=== PATIENT | female | born 1995 | race Caucasian/White ===

== ENCOUNTER 2017-03-10 07:55 | Outpatient (CLI) | payer MEDICAID ==
[2017-03-10 11:51] LABS: BASOPHILS % (AUTO) 0.4 %; EOSINOPHILS # (AUTO) 0.1 10^3/uL (0.0-0.7); EOSINOPHILS % (AUTO) 0.5 %; HCT - HEMATOCRIT 38.3 % (37.0-47.0); HGB - HEMOGLOBIN 12.7 g/dL (12.0-16.0); LYMPHOCYTES # (AUTO) 2.4 10^3/uL (1.5-3.5); LYMPHOCYTES % (AUTO) 20.1 %; MEAN CORPUSCULAR HEMOGLOBIN 29.1 pg (27.0-31.0); MEAN CORPUSCULAR HGB CONC 33.2 g/dL (32.0-36.0); MEAN CORPUSCULAR VOLUME 87.7 fL (81.0-99.0); MEAN PLATELET VOLUME 8.9 fL (7.9-10.8); MONOCYTES # (AUTO) 0.7 10^3/uL (0.0-1.0); MONOCYTES % (AUTO) 6.1 %; NEUTROPHILS # (AUTO) 8.5 10^3/uL (1.5-6.6); NEUTROPHILS % (AUTO) 72.9 %; RED BLOOD COUNT 4.36 10^6/uL (4.20-5.40); RED CELL DISTRIBUTION WIDTH 14.9 % (12.0-15.0); UNCORRECTED WHITE BLOOD COUNT 11.7 x10^3/uL; WHITE BLOOD COUNT 11.7 x10^3/uL (4.8-10.8)
[2017-03-10 13:12] LABS: HEMOGLOBIN A1C 0.48 g/dL
== END 2017-03-10 07:56 | disposition home or self-care (01) ==
LOC: LAB.F 07:55
PROVIDERS: ATTEND Nurse Practitioner Family
DX: R00.2 Palpitations (principal)
CPT/HCPCS: 36415; 83036; 84443; 85025

== ENCOUNTER 2017-04-06 09:39 | Outpatient (CLI) | payer MEDICAID ==
[2017-04-06 18:15] LABS: CALCIUM 9.6 mg/dL (8.5-10.3); CREATININE 0.6 mg/dL (0.4-1.0); POTASSIUM 4.2 mmol/L (3.5-5.0)
[2017-04-06 18:25] LABS: THYROID STIMULATING HORMONE 4.14 uIU/mL (0.34-5.60)
== END 2017-04-06 09:40 | disposition home or self-care (01) ==
LOC: LAB.F 09:39
PROVIDERS: ATTEND Nurse Practitioner Family
DX: R00.2 Palpitations (principal); Z00.01 Encounter for general adult medical examination with abnormal findings; F41.8 Other specified anxiety disorders
CPT/HCPCS: 36415; 80048; 84439; 84443

== ENCOUNTER 2018-07-24 12:49 | Outpatient (CLI) | payer OTHER, MEDICAID | END 2018-07-24 12:50 | disposition critical access hospital (66) | LOC: EMS 12:49 | PROVIDERS: ATTEND Surgery | DX: R10.2 Pelvic and perineal pain (principal) | CPT/HCPCS: A0425; A0429 ==

== ENCOUNTER 2018-07-24 13:35 | Emergency (ER) | payer OTHER, MEDICAID ==
[2018-07-24] MEDS ORDERED: IBUPROFEN 800 MG TABLET PO STA (14:18)
[2018-07-24 14:38] LABS: BILIRUBIN,URINE NEGATIVE (NEGATIVE); GLUCOSE, URINE (UA) NEGATIVE (NEGATIVE); KETONES,URINE (UA) NEGATIVE (NEGATIVE); LEUKOCYTE ESTERASE, URINE NEGATIVE (NEGATIVE); NITRITE,URINE NEGATIVE (NEGATIVE); OCCULT BLOOD,URINE TRACE-LYSE (NEGATIVE); PROTEIN,URINE NEGATIVE (NEGATIVE); UROBILINOGEN,URINE 0.2 (NORMAL) E.U./dL (NORMAL)
[2018-07-24 14:40] LABS: CLARITY,URINE CLEAR (CLEAR); HCG UR QUAL NEGATIVE
--- NOTE | 2018-07-24 15:20 | ED Physician Documentation ---
PD HPI FEMALE - Stated complaint Stated Complaint: FEVER - Chief complaint Chief Complaint: Abd Pain - History obtained from History obtained from: Patient - History of Present Illness Timing - onset: How many days ago (2) Timing - details: Still present Associated symptoms: Pelvic pain Contributing factors: Sexually active Similar symptoms before: No diagnosis (Similar experience about two years ago.) - Additional information Additional information: The patient is a 22-year-old female who presents with pelvic pain that started 2 days ago after "rough sex." She has noticed a low-grade fever today. She denies abdominal pain, vaginal bleeding, vomiting or diarrhea, or dysuria. Her last menstrual period occurred last week. She reports a history of similar episode about 2 years ago. Review of Systems Constitutional: reports: Fever Nose: denies: Congestion Throat: denies: Sore throat Respiratory: denies: Dyspnea, Cough GI: denies: Abdominal Pain, Nausea, Vomiting : reports: LMP (1 week ago.), Other (pelvic/vaginal pain.). denies: Dysuria, Vaginal bleeding Skin: denies: Rash Musculoskeletal: denies: Extremity pain Neurologic: denies: Headache PD PAST MEDICAL HISTORY - Past Medical History Endocrine/Autoimmune: None VIBRATING SCREED OPERATOR: None Psych: Panic attacks - Past Surgical History Past Surgical History: No - Present Medications Home Medications: Ambulatory Orders Medication Instructions Recorded Confirmed No Known Home Medications 01/01/16 01/01/16 - Allergies Allergies/Adverse Reactions: Allergies Allergy/AdvReac Type Severity Reaction Status Date / Time No Known Drug Allergies Allergy Verified 07/24/18 13:42 - Social History Does the pt smoke?: No Smoking Status: Never smoker Does the pt drink ETOH?: Yes Does the pt have substance abuse?: Yes PD ED PE NORMAL - Vitals Vital signs reviewed: Yes (normal) - General General: Alert and oriented X 3, Well developed/nourished - HEENT HEENT: Atraumatic - Cardiac Cardiac: RRR - Respiratory Respiratory: No respiratory distress, Clear bilaterally - Abdomen Abdomen: Soft, Non tender - Female Female : Polishing Wheel Repairer present, Other (Normal external examination. There is discomfort with insertion of the speculum; no abrasions or bruising is noted. There is no vaginal bleeding. Cervical cultures were obtained. Bimanual exam was not performed due to vaginal discomfort. No adnexal tenderness to palpation anteriorly.) - Back Back: No CVA TTP - Derm Derm: No rash - Extremities Extremities: No tenderness to palpate - Neuro Neuro: Alert and oriented X 3, No motor deficit, Normal speech PD ED PE EXPANDED - Female Female : Normal external, Cultures sent, Polishing Wheel Repairer present. No: Skin lesions, Vaginal Bleeding, Vaginal Discharge, Adnexal Tenderness Results - Vitals Vitals: Oxygen O2 Source Room air - Labs Labs: Laboratory Tests 07/24/18 14:35 Urine Color YELLOW Urine Clarity CLEAR Urine pH 8.0 H Ur Specific [place] 1.020 Urine Protein NEGATIVE Urine Glucose (UA) NEGATIVE Urine Ketones NEGATIVE Urine Occult Blood TRACE-LYSE Urine Nitrite NEGATIVE Urine Bilirubin NEGATIVE Urine Urobilinogen 0.2 (NORMAL) Ur Leukocyte Esterase NEGATIVE Ur Microscopic Review NOT INDICATED Urine Culture Comments NOT INDICATED Urine HCG, Qual NEGATIVE PD MEDICAL DECISION MAKING - ED course Complexity details: reviewed results, re-evaluated patient, considered differential, d/w patient ED course: The patient's presentation is significant for pelvic wall contusion associated with rough sexual intercourse. There is no evidence of vaginal tear, or intra- abdominal injury. Urinalysis and test are negative. GC and chlamydia cultures are pending. Treatment in the emergency department included administration of ibuprofen 800 mg orally. I discussed with her the expected course of illness, symptomatic treatment and outpatient follow-up, as well as potentially worrisome signs or symptoms that should prompt reevaluation in the emergency department. Departure - Departure Disposition: 01 Home, Self Care Clinical Impression: Pelvic pain Condition: Stable Instructions: ED Pelvic Pain [facility] Follow-Up: Keisha Johns ARNP [Credentialed Staff Provider] - Comments: You can use ibuprofen, up to 600 mg 3 times daily for anti-inflammatory effect. Follow-up with your primary physician within 2 weeks. Call to schedule appointment. Return to the emergency department if you develop increasing pain, fever with shaking chills, persistent vomiting, or otherwise worsening. Discharge Date/Time: 07/24/18 15:26
[2018-07-24 15:27] VITALS: BP 120/82
== END 2018-07-24 15:26 | disposition home or self-care (01) ==
LOC: EDUNIT# → ED 13:35
DX: R10.2 Pelvic and perineal pain (principal)
CPT/HCPCS: 81003; 81025; 87491; 87591; 99283; A9270; 81001; 87086

== ENCOUNTER 2019-02-02 13:50 | Outpatient (CLI) | payer MEDICAID ==
[2019-02-02 17:35] LABS: BASOPHILS % (AUTO) 0.4 %; EOSINOPHILS % (AUTO) 0.4 %; LYMPHOCYTES # (AUTO) 1.6 10^3/uL (1.5-3.5); LYMPHOCYTES % (AUTO) 20.9 %; MEAN CORPUSCULAR HEMOGLOBIN 28.8 pg (27.0-31.0); MEAN CORPUSCULAR HGB CONC 30.5 g/dL (32.0-36.0); MEAN CORPUSCULAR VOLUME 94.2 fL (81.0-99.0); MEAN PLATELET VOLUME 11.3 fL (7.9-10.8); MONOCYTES # (AUTO) 0.5 10^3/uL (0.0-1.0); MONOCYTES % (AUTO) 6.8 %; NEUTROPHILS # (AUTO) 5.4 10^3/uL (1.5-6.6); NEUTROPHILS % (AUTO) 71.2 %; PLT - PLATELET COUNT 299 10^3/uL (130-450); RED BLOOD COUNT 4.52 10^6/uL (4.20-5.40); RED CELL DISTRIBUTION WIDTH 13.3 % (12.0-15.0); WHITE BLOOD COUNT 7.5 x10^3/uL (4.8-10.8)
[2019-02-02 18:04] LABS: ALBUMIN 4.6 g/dL (3.2-5.5); ALBUMIN/GLOBULIN RATIO 1.3 (1.0-2.2); BILIRUBIN,TOTAL 0.7 mg/dL (0.2-1.0); CALCIUM 9.5 mg/dL (8.5-10.3); CREATININE 0.7 mg/dL (0.4-1.0); TOTAL PROTEIN 8.2 g/dL (6.7-8.2)
== END 2019-02-02 13:51 | disposition home or self-care (01) ==
LOC: LAB.S 13:50
PROVIDERS: ATTEND Registered Nurse
DX: R00.2 Palpitations (principal)
CPT/HCPCS: 36415; 80053; 84443; 85025

== ENCOUNTER 2019-05-04 19:46 | Outpatient (CLI) | payer MEDICAID | END 2019-05-04 19:47 | disposition EMS.NT | LOC: EMS 19:46 | PROVIDERS: ATTEND Surgery | DX: R55 Syncope and collapse (principal) ==

== ENCOUNTER 2019-08-24 17:30 | Outpatient (CLI) | payer OTHER, MEDICAID ==
--- NOTE | 2019-08-25 11:57 | Ultrasound Report ---
Reason: ANEMIA, DUB Procedure Date: 08/24/2019 Accession Number: [id number] / [id number] Procedure: US - Pelvic w/Transvaginal CPT Code: Final Report FULL RESULT: EXAM: PELVIC ULTRASOUND. EXAM DATE: 08/24/2019 06:17 PM. CLINICAL HISTORY: Anemia, dysfunctional uterine bleeding. COMPARISON: None. TECHNIQUE: Realtime transabdominal pelvic scan performed to identify the uterus and adnexa and as an overview of other pelvic structures, followed by transvaginal scan to provide greater detail of the uterus and adnexa, with static image documentation. FINDINGS: Uterus: 8.3 x 3.4 x 4.1 cm, volume 60.1 cc. Anteverted position. Normal overall size and echotexture. Masses: None. Endometrium: 13 mm. Anechoic 0.2 cm lower uterine segment endometrial cyst. No focal mass, focal thickening or abnormal blood flow. Cervix: Unremarkable. Right Ovary: 3 x 2.4 x 2.9 cm, volume 10.3 cc. Normal echotexture and blood flow. 1.6 x 1.4 x 1.8 Cm complex right ovarian cyst with debris and mild peripheral flow. No mural nodules or thickened septations. Left Ovary: 2.2 x 2.7 x 1.8 cm, volume 7.9 cc. Normal echotexture and blood flow. Free Fluid: None. Other: None. IMPRESSION: 1. 1.8 cm complex right ovarian cysts or peripheral flow. Sonographic features are most compatible with a hemorrhagic cyst or corpus luteum. Otherwise, normal bilateral ovaries and adnexa. 2. No uterine fibroids. 3. No endometrial mass or polyp. Incidental endometriosis. RADIA
== END 2019-08-24 17:31 | disposition home or self-care (01) ==
LOC: DI 17:30
PROVIDERS: ATTEND Obstetrics & Gynecology
DX: N83.201 Unspecified ovarian cyst, right side (principal); D64.9 Anemia, unspecified
CPT/HCPCS: 76830; 76856

== ENCOUNTER 2019-09-26 08:00 | Outpatient (CLI) | payer OTHER, MEDICAID ==
[2019-09-27 21:29] LABS: TRICHOMONAS VAGINALIS DNA NEGATIVE (NEGATIVE)
== END 2019-09-26 23:59 | disposition home or self-care (01) ==
LOC: LAB.R 08:00
PROVIDERS: ATTEND Obstetrics & Gynecology
DX: Z20.2 Contact with and (suspected) exposure to infections with a predominantly sexual mode of transmission (principal)
CPT/HCPCS: 87491; 87591; 87661

== ENCOUNTER 2019-10-18 16:06 | Outpatient (CLI) | payer OTHER, MEDICAID ==
[2019-10-18 16:40] LABS: HGB - HEMOGLOBIN 12.5 g/dL (12.0-16.0); MEAN CORPUSCULAR HEMOGLOBIN 30.3 pg (27.0-31.0); MEAN CORPUSCULAR HGB CONC 32.6 g/dL (32.0-36.0); MEAN CORPUSCULAR VOLUME 92.7 fL (81.0-99.0); MEAN PLATELET VOLUME 10.7 fL (7.9-10.8); RED BLOOD COUNT 4.13 10^6/uL (4.20-5.40); RED CELL DISTRIBUTION WIDTH 13.2 % (12.0-15.0); WHITE BLOOD COUNT 11.5 x10^3/uL (4.8-10.8)
[2019-10-19 12:29] LABS: HIV AG/AB 4TH GEN NON-REACTIVE (NON-REACTIVE)
[2019-10-19 13:00] LABS: HEPATITIS A IGM NON-REACTIVE (NON-REACTIVE); HEPATITIS B SURFACE ANTIGEN NON-REACTIVE (NON-REACTIVE); HEPATITIS C ANTIBODY NON-REACTIVE (NON-REACTIVE)
[2019-10-20 11:19] LABS: HSV 1 IGG TYPE SPECIFIC AB <0.90 index; HSV 2 IGG TYPE SPECIFIC AB <0.90 index
== END 2019-10-18 16:07 | disposition home or self-care (01) ==
LOC: LAB 16:06
PROVIDERS: ATTEND Obstetrics & Gynecology
DX: Z33.2 Encounter for elective termination of pregnancy (principal); Z20.2 Contact with and (suspected) exposure to infections with a predominantly sexual mode of transmission
CPT/HCPCS: 36415; 80074; 81599; 85027; 86592; 86695; 86696; 86900; 86901; 87389

== ENCOUNTER 2019-11-01 13:00 | Outpatient (CLI) | payer OTHER, MEDICAID | END 2019-11-01 23:59 | disposition home or self-care (01) | LOC: LAB.WCP 13:00 | PROVIDERS: ATTEND Advanced Practice Midwife | DX: Z33.2 Encounter for elective termination of pregnancy (principal) | CPT/HCPCS: 36415; 84702 ==

== ENCOUNTER 2019-11-03 14:33 | Outpatient (CLI) | payer OTHER, MEDICAID | END 2019-11-03 23:59 | disposition home or self-care (01) | LOC: LAB.WCP 14:33 | PROVIDERS: ATTEND Advanced Practice Midwife | DX: Z33.2 Encounter for elective termination of pregnancy (principal) | CPT/HCPCS: 36415; 84702 ==

== ENCOUNTER 2019-11-07 14:47 | Outpatient (CLI) | payer OTHER, MEDICAID | END 2019-11-07 23:59 | disposition home or self-care (01) | LOC: LAB.WCP 14:47 | PROVIDERS: ATTEND Advanced Practice Midwife | DX: Z33.2 Encounter for elective termination of pregnancy (principal) | CPT/HCPCS: 36415; 84702; 84703 ==

== ENCOUNTER 2019-11-10 15:15 | Outpatient (CLI) | payer OTHER, MEDICAID | END 2019-11-10 23:59 | disposition home or self-care (01) | LOC: LAB.WCP 15:15 | PROVIDERS: ATTEND Advanced Practice Midwife | DX: Z33.2 Encounter for elective termination of pregnancy (principal) | CPT/HCPCS: 36415; 84702 ==

== ENCOUNTER 2019-11-16 12:07 | Outpatient (CLI) | payer OTHER, MEDICAID | END 2019-11-16 23:59 | disposition home or self-care (01) | LOC: LAB.WCP 12:07 | PROVIDERS: ATTEND Advanced Practice Midwife | DX: Z33.2 Encounter for elective termination of pregnancy (principal) | CPT/HCPCS: 36415; 84702 ==

== ENCOUNTER 2019-11-24 08:00 | Outpatient (CLI) | payer OTHER, MEDICAID | END 2019-11-24 23:59 | disposition home or self-care (01) | LOC: LAB.WCP 08:00 | PROVIDERS: ATTEND Advanced Practice Midwife | DX: Z33.2 Encounter for elective termination of pregnancy (principal) | CPT/HCPCS: 36415; 84702 ==

== ENCOUNTER 2019-11-30 10:40 | Outpatient (CLI) | payer OTHER, MEDICAID | END 2019-11-30 23:59 | disposition home or self-care (01) | LOC: LAB.WCP 10:40 | PROVIDERS: ATTEND Advanced Practice Midwife | DX: Z33.2 Encounter for elective termination of pregnancy (principal) | CPT/HCPCS: 36415; 84702 ==

== ENCOUNTER 2019-11-30 10:51 | Outpatient (CLI) | payer OTHER, MEDICAID ==
[2019-11-30 18:35] LABS: CANDIDA GROUP DNA POSITIVE (NEGATIVE); CANDIDA KRUSEI DNA NEGATIVE (NEGATIVE); TRICHOMONAS VAGINALIS DNA NEGATIVE (NEGATIVE)
== END 2019-11-30 23:59 | disposition home or self-care (01) ==
LOC: LAB.R 10:51
PROVIDERS: ATTEND Advanced Practice Midwife
DX: N76.0 Acute vaginitis (principal)
CPT/HCPCS: 87661; 87801

== ENCOUNTER 2019-12-06 14:43 | Outpatient (CLI) | payer OTHER, MEDICAID | END 2019-12-06 23:59 | disposition home or self-care (01) | LOC: LAB.WCP 14:43 | PROVIDERS: ATTEND Advanced Practice Midwife | DX: Z33.2 Encounter for elective termination of pregnancy (principal) | CPT/HCPCS: 36415; 84702 ==

== ENCOUNTER 2020-03-20 08:00 | Outpatient (CLI) | payer OTHER, MEDICAID ==
[2020-03-20 18:44] LABS: CANDIDA GROUP DNA POSITIVE (NEGATIVE); CANDIDA KRUSEI DNA NEGATIVE (NEGATIVE); TRICHOMONAS VAGINALIS DNA NEGATIVE (NEGATIVE)
[2020-03-20 19:59] LABS: TRICHOMONAS VAGINALIS DNA NEGATIVE (NEGATIVE)
== END 2020-03-20 23:59 | disposition home or self-care (01) ==
LOC: LAB.R 08:00
PROVIDERS: ATTEND Nurse Practitioner Obstetrics & Gynecology
DX: N76.0 Acute vaginitis (principal); B37.3 Candidiasis of vulva and vagina; Z11.3 Encounter for screening for infections with a predominantly sexual mode of transmission
CPT/HCPCS: 36415; 82951; 87491; 87591; 87661; 87801

== ENCOUNTER 2020-03-20 10:39 | Outpatient (CLI) | payer OTHER, MEDICAID | END 2020-03-20 10:40 | disposition home or self-care (01) | LOC: LAB 10:39 | PROVIDERS: ATTEND Nurse Practitioner Obstetrics & Gynecology | DX: B37.3 Candidiasis of vulva and vagina (principal) | CPT/HCPCS: 36415; 82951 ==

== ENCOUNTER 2020-06-25 14:32 | Outpatient (CLI) | payer OTHER, MEDICAID ==
[2020-06-25 19:55] LABS: BASOPHILS # (AUTO) 0.1 10^3/uL (0.0-0.1); BASOPHILS % (AUTO) 0.6 %; EOSINOPHILS # (AUTO) 0.1 10^3/uL (0.0-0.7); EOSINOPHILS % (AUTO) 0.6 %; HGB - HEMOGLOBIN 13.3 g/dL (12.0-16.0); LYMPHOCYTES # (AUTO) 2.2 10^3/uL (1.5-3.5); LYMPHOCYTES % (AUTO) 24.7 %; MEAN CORPUSCULAR HEMOGLOBIN 29.9 pg (27.0-31.0); MEAN CORPUSCULAR VOLUME 96.4 fL (81.0-99.0); MEAN PLATELET VOLUME 11.2 fL (7.9-10.8); MONOCYTES # (AUTO) 0.5 10^3/uL (0.0-1.0); MONOCYTES % (AUTO) 6.1 %; NEUTROPHILS # (AUTO) 5.9 10^3/uL (1.5-6.6); NEUTROPHILS % (AUTO) 67.5 %; PLT - PLATELET COUNT 279 10^3/uL (130-450); RED BLOOD COUNT 4.45 10^6/uL (4.20-5.40); RED CELL DISTRIBUTION WIDTH 13.2 % (12.0-15.0); WHITE BLOOD COUNT 8.7 x10^3/uL (4.8-10.8)
[2020-06-25 20:06] LABS: ALBUMIN 4.5 g/dL (3.2-5.5); ALBUMIN/GLOBULIN RATIO 1.3 (1.0-2.2); BILIRUBIN,TOTAL 0.7 mg/dL (0.2-1.0); CALCIUM 9.4 mg/dL (8.5-10.3); CREATININE 0.7 mg/dL (0.4-1.0)
[2020-06-25 20:22] LABS: THYROID STIMULATING HORMONE 1.73 uIU/mL (0.34-5.60)
[2020-06-25 20:27] LABS: FREE T4 (FREE THYROXINE) 0.9 ng/dL (0.58-1.64)
== END 2020-06-25 14:33 | disposition home or self-care (01) ==
LOC: LAB.S 14:32
PROVIDERS: ATTEND Physician Assistant
DX: R53.83 Other fatigue (principal); E55.9 Vitamin D deficiency, unspecified
CPT/HCPCS: 36415; 80053; 82306; 84439; 84443; 85025

== ENCOUNTER 2021-03-15 14:30 | Outpatient (CLI) | payer OTHER, MEDICAID ==
--- NOTE | 2021-03-15 17:20 | Ultrasound Report ---
PROCEDURE: Duplex Lwr Ext Arterial Bilat INDICATIONS: INTERMITTENT CLAUDICATION TECHNIQUE: Color and pulse Doppler interrogation was performed of both lower extremity arterial systems, with im age documentation. COMPARISON: None. FINDINGS: Right lower extremity: Common femoral artery: 177 cm/sec, with triphasic flow. Deep femoral artery: 111 cm/sec, with triphasic flow. Proximal superficial femoral artery: 113 cm/sec, with triphasic flow. Mid superficial femoral artery: 140 cm/sec, with triphasic flow. Distal superficial femoral artery: 93 cm/sec, with triphasic flow. Popliteal artery: 81 cm/sec, with triphasic flow. Posterior tibial artery: 87 cm/sec, with triphasic flow. Anterior tibial artery/dorsalis pedis: 55/38 cm/sec, with triphasic/triphasic flow. Corea-scale imaging description: Unremarkable. Left lower extremity: Common femoral artery: 144 cm/sec, with triphasic flow. Deep femoral artery: 85 cm/sec, with triphasic flow. Proximal superficial femoral artery: 111 cm/sec, with triphasic flow. Mid superficial femoral artery: 123 cm/sec, with triphasic flow. Distal superficial femoral artery: 102 cm/sec, with triphasic flow. Popliteal artery: 65 cm/sec, with triphasic flow. Posterior tibial artery: 73 cm/sec, with triphasic flow. Anterior tibial artery/dorsalis pedis: 72/33 cm/sec, with triphasic/triphasic flow. Corea-scale imaging description: Unremarkable. IMPRESSION: 1. There is 20-49% stenosis of the right common femoral artery by flow velocity criteria. 2. Remainder of the imaged lower extremities demonstrate less than 20% stenosis by flow velocity rosemary ricci. Reviewed by: Estrada Hernandez on 03/15/2021 4:18 PM MARLYN Approved by: Estrada Hernandez on 03/15/2021 4:18 PM MARLYN Station ID: [id number]
== END 2021-03-15 14:31 | disposition home or self-care (01) ==
LOC: DI 14:30
PROVIDERS: ATTEND Physician Assistant
DX: I73.9 Peripheral vascular disease, unspecified (principal)
CPT/HCPCS: 93925

== ENCOUNTER 2023-11-17 11:42 | Outpatient (CLI) | payer MEDICAID ==
[2023-11-17 14:22] LABS: BASOPHILS # (AUTO) 0.1 10^3/uL (0.0-0.1); BASOPHILS % (AUTO) 0.8 %; EOSINOPHILS % (AUTO) 0.5 %; HGB - HEMOGLOBIN 12.1 g/dL (12.0-16.0); LYMPHOCYTES # (AUTO) 2.1 10^3/uL (1.5-3.5); LYMPHOCYTES % (AUTO) 26.8 %; MEAN CORPUSCULAR HEMOGLOBIN 28.9 pg (27.0-31.0); MEAN CORPUSCULAR HGB CONC 30.3 g/dL (32.0-36.0); MEAN CORPUSCULAR VOLUME 95.7 fL (81.0-99.0); MEAN PLATELET VOLUME 11.5 fL (7.9-10.8); MONOCYTES # (AUTO) 0.6 10^3/uL (0.0-1.0); MONOCYTES % (AUTO) 7.1 %; NEUTROPHILS % (AUTO) 64.5 %; PLT - PLATELET COUNT 289 10^3/uL (130-450); RED BLOOD COUNT 4.18 10^6/uL (4.20-5.40); RED CELL DISTRIBUTION WIDTH 13.7 % (12.0-15.0); WHITE BLOOD COUNT 7.8 x10^3/uL (4.8-10.8)
[2023-11-17 14:34] LABS: ALBUMIN 4.8 g/dL (3.2-5.5); ALBUMIN/GLOBULIN RATIO 1.5 (1.0-2.2); ALKALINE PHOSPHATASE 63 IU/L (42-121); ALT ALANINE AMINOTRANSFERASE 22 IU/L (10-60); AST ASPARTATE AMINOTRANSFERASE 21 IU/L (10-42); BILIRUBIN,TOTAL 0.3 mg/dL (0.2-1.0); BUN - BLOOD UREA NITROGEN 13 mg/dL (6-20); CALCIUM 10.7 mg/dL (8.5-10.3); CARBON DIOXIDE - CO2 28 mmol/L (21-32); CHLORIDE 105 mmol/L (101-111); CHOL/HDL RATIO 3.5 (<4.4); CHOLESTEROL 180 mg/dL; CREATININE 0.6 mg/dL (0.6-1.3); GFR - MDRD 121 (>89); GLUCOSE 90 mg/dL (74-104); HDL CHOLESTEROL 51 mg/dL; LDL CHOLESTEROL,CALCULATED 112 mg/dL; LDL/HDL RATIO 2.2 (<4.4); SODIUM 139 mmol/L (135-145); TRIGLYCERIDES 85 mg/dL (48-352); VLDL CHOLESTEROL 17 mg/dL
[2023-11-17 14:43] LABS: THYROID STIMULATING HORMONE 1.17 uIU/mL (0.34-5.60)
[2023-11-17 20:54] LABS: ESTIMATED AVERAGE GLUCOSE 91 mg/dL (70-100); HEMOGLOBIN A1c% 4.8 % (4.27-6.07)
== END 2023-11-17 11:43 | disposition home or self-care (01) ==
LOC: LAB.S 11:42
PROVIDERS: ATTEND Physician Assistant Medical
DX: D64.9 Anemia, unspecified (principal); Z13.9 Encounter for screening, unspecified; E55.9 Vitamin D deficiency, unspecified; F41.9 Anxiety disorder, unspecified
CPT/HCPCS: 36415; 80053; 80061; 82306; 82607; 82746; 83036; 83721; 84443; 85025